=== PATIENT | female | born 1975 | race Hispanic/Latino ===

== ENCOUNTER 2020-07-17 18:58 | Emergency (ER) | payer BC ==
[2020-07-17] MEDS ORDERED: Ketorolac Tromethamine 30 MG/ML VIAL ONE (21:01)
[2020-07-17] MEDS ORDERED: Diazepam 5 MG TAB ONE (21:43)
== END 2020-07-17 22:11 | disposition home or self-care (01) ==
LOC: ERS 18:58
DX: S29.012A Strain of muscle and tendon of back wall of thorax, initial encounter (principal); X50.1XXA Overexertion from prolonged static or awkward postures, initial encounter; Y93.43 Activity, gymnastics
CPT/HCPCS: 96372; 99283; J1885